=== PATIENT | male | born 2000 | race Caucasian/White ===

== ENCOUNTER 2020-06-17 20:04 | Emergency (ER) | payer OTHER | END 2020-06-17 20:50 | disposition home or self-care (01) | LOC: ER1 20:04 | DX: Z48.815 Encounter for surgical aftercare following surgery on the digestive system (principal); Z90.49 Acquired absence of other specified parts of digestive tract; F17.290 Nicotine dependence, other tobacco product, uncomplicated; Z88.1 Allergy status to other antibiotic agents | CPT/HCPCS: 99283 ==

== ENCOUNTER 2020-09-07 13:44 | Emergency (ER) | payer OTHER ==
[2020-09-07 14:55] LABS: HEMOGLOBIN 15.4 gm/dl (14.0-17.5); RED BLOOD COUNT 4.9 M/UL (4.20-5.50)
[2020-09-07 15:05] LABS: BUN/CREATININE RATIO 12 (0-10)
[2020-09-07] MEDS ORDERED: ZOFRAN4 MG PO (15:25)
== END 2020-09-07 15:48 | disposition home or self-care (01) ==
LOC: ER1 13:44
PROVIDERS: Physician Assistant
DX: R11.2 Nausea with vomiting, unspecified (principal); Z90.49 Acquired absence of other specified parts of digestive tract; Z88.8 Allergy status to other drugs, medicaments and biological substances
CPT/HCPCS: 80053; 81001; 83690; 85025; 87086; 96374; 99284; J2405